=== PATIENT | female | born 1995 | race Caucasian/White ===

== ENCOUNTER 2017-08-16 17:12 | Emergency (ER) | payer OTHER ==
--- NOTE | 2017-08-16 17:50 | RAD ---
PA AND LATERAL OF THE CHEST: INDICATION: Chest pain. COMPARISON: Prior exam dated 11/22/2009. IMPRESSION: No acute cardiopulmonary abnormality. The examination is not appreciably changed from this compariso n study. POS: [facility]
[2017-08-16] MEDS ORDERED: Dicyclomine 20 MG TAB ONE (17:56)
[2017-08-16] MEDS ORDERED: Lidocaine Viscous Sol 2% 15 ml UD Cup ONE (17:57)
[2017-08-16] MEDS ORDERED: Mag-Al Plus 1200 MG/1200 MG/120 MG/30 ML UDCUP ONE (17:57)
[2017-08-16 18:26] LABS: #Basophils 0.1 thou/uL (0.0-0.2); #Eosinphils 0.1 thou/uL (0.0-0.7); #Lymphocytes 3.1 thou/uL (1.20-3.40); #Monocytes 0.6 thou/uL (0.11-0.59); #Neutrophils 5.2 thou/uL (1.40-6.50); %Basophils 0.6 % (0.0-1.0); %Eosinophils 1.3 % (0.0-10.0); %Lymphocytes 34.4 % (21.0-51.0); %Monocytes 6.5 % (0.0-10.0); %Neutrophils 57.3 % (42.0-75.0); Hemoglobin 11.8 g/dL (12.0-16.0); Mean Corpuscular HGB CONC 32.1 g/dL (32.0-36.0); Mean Corpuscular Hemoglobin 25.8 pg (27.0-31.0); Mean Corpuscular Volume 80.4 fl (81.0-99.0); Mean Platelet Volume 6.5 fL (7.4-10.4); Platelet Count 325 thou/uL (130-400); RBC Distribution Width 13.5 % (11.5-14.5); Red Blood Cell (RBC) Count 4.59 mill/uL (4.20-5.40); White Blood Cell (WBC) Count 9.1 thou/uL (4.8-10.8)
[2017-08-16 18:40] LABS: ALT (SGPT) 36 U/L (8-55); AST (SGOT) 25 U/L (5-34); Albumin 4.1 g/dL (3.5-5.0); Alkaline Phosphatase 136 U/L (40-150); Anion Gap 14 mmol/L (10-20); BUN (Urea Nitrogen) 9 mg/dL (7.0-18.7); Bilirubin, Total 0.4 mg/dL (0.2-1.2); Calc. Creatinine Clearance 0 mL/min (70-130); Calcium 9.6 mg/dL (7.8-10.44); Carbon Dioxide 25 mmol/L (22-29); Chloride 105 mmol/L (98-107); Estimated GFR-MDRD Greater than 90; Globulin 3.8 g/dL (2.4-3.5); Glucose 104 mg/dL (70-105); Lipase 11 U/L (8-78); Potassium 3.6 mmol/L (3.5-5.1); Protein, Total 7.9 g/dL (6.0-8.3); Sodium 140 mmol/L (136-145)
[2017-08-16 18:41] LABS: CKMB 0.8 ng/mL (0-6.6); Troponin I Less than 0.010 ng/mL (< 0.028)
[2017-08-16 18:53] LABS: Bilirubin Negative (Negative); Blood, Urine Trace (Negative); Clarity Hazy (Clear); Glucose, Urine (Dipstick) Negative (Negative); Leukocyte Small (Negative); Nitrite Positive (Negative); Protein, Urine (Dipstick) Negative (Neg-Trace); Specific Gravity, Urine 1.028 (1.002-1.036); Urobilinogen 0.2 mg/dL (0.2-1.0); pH, Urine 5.5 (5.0-9.0)
[2017-08-16 18:54] LABS: Bacteria/HPF 3+ HPF (None Seen); RBC/HPF 0-3 HPF (0-3)
[2017-08-16] MEDS ORDERED: Ketorolac Tromethamine 30 MG/ML VIAL ONE (19:48)
[2017-08-16] MEDS ORDERED: Cephalexin 500 MG CAP ONE (19:48)
[2017-08-16] MEDS ORDERED: Ondansetron HCl/PF 4 MG/2 ML Vial ONE (20:10)
--- NOTE | 2017-08-16 20:11 | ULT ---
RIGHT UPPER QUADRANT ULTRASOUND: 08/16/17 INDICATION: Epigastric abdominal pain and nausea and vomiting. COMPARISON: Prior exam dated 11/22/09. FINDINGS: There is increased echogenicity of the liver consistent with fatty infiltration. No focal hepatic les ion is evident. Visualized aspects of the pancreas are unremarkable. The gallbladder is contracted. There is a small amount of edema surrounding the gallbladder. The gall bladder wall is mildly thickened measuring 3.6 mm. The laboratory chemical assistant reports a positive Richardson's sign. Common bile duct measures 5.5 mm. The right kidney measures 11.9 cm in length. No focal renal lesion or hydronephrosis is evident. IMPRESSION: 1. Equivocal study for acute cholecystitis by sonogram. The gallbladder is contracted. There is suggestion of mild pericholecystic fluid and gallbladder wall thickening with a reported positive son ographic Richardson's sign. Recommend consideration for HIDA scan to evaluate for cystic duct obstruction . 2. Fatty infiltration of the liver. POS: [facility]
--- NOTE | 2017-09-27 15:48 | EKG ---
Test Reason : Blood Pressure : / mmHG Vent. Rate : 069 BPM Atrial Rate : 069 BPM P-R Int : 152 ms QRS Dur : 078 ms QT Int : 388 ms P-R-T Axes : 043 005 010 degrees QTc Int : 415 ms Normal sinus rhythm Moderate voltage criteria for LVH, may be normal variant Borderline ECG Confirmed by OSMIN MIN D.O. ([id number]), photographic editor KAUSHAL SEE ([id number]) on 09/27/2017 3:47:54 PM Referred By: DAYAMI Confirmed By:OSMIN MIN D.O.
== END 2017-08-16 21:20 | disposition home or self-care (01) ==
LOC: SCSER 17:12
DX: N39.0 Urinary tract infection, site not specified (principal); D64.9 Anemia, unspecified
CPT/HCPCS: 71020; 76705; 80053; 81003; 81015; 82553; 83690; 84484; 85025; 87077; 87086; 87186; 93005; 96374; 96375; J1885; J2405

== ENCOUNTER 2017-08-27 07:16 | Day surgery (SDC) | payer OTHER, SELFPAY ==
[2017-08-27 07:55] LABS: #Basophils 0.1 thou/uL (0.0-0.2); #Eosinphils 0.1 thou/uL (0.0-0.7); #Lymphocytes 2.6 thou/uL (1.20-3.40); #Monocytes 0.6 thou/uL (0.11-0.59); #Neutrophils 4.6 thou/uL (1.40-6.50); %Basophils 0.6 % (0.0-1.0); %Eosinophils 1.9 % (0.0-10.0); %Lymphocytes 32.9 % (21.0-51.0); %Monocytes 7.7 % (0.0-10.0); %Neutrophils 56.9 % (42.0-75.0); Hemoglobin 12.6 g/dL (12.0-16.0); Mean Corpuscular HGB CONC 34.4 g/dL (32.0-36.0); Mean Corpuscular Hemoglobin 27.9 pg (27.0-31.0); Mean Corpuscular Volume 81.1 fl (81.0-99.0); Mean Platelet Volume 7.2 fL (7.4-10.4); Platelet Count 324 thou/uL (130-400); RBC Distribution Width 13.9 % (11.5-14.5); Red Blood Cell (RBC) Count 4.53 mill/uL (4.20-5.40)
[2017-08-27 08:15] LABS: ALT (SGPT) 36 U/L (8-55); AST (SGOT) 26 U/L (5-34); Albumin 4.1 g/dL (3.5-5.0); Alkaline Phosphatase 129 U/L (40-150); Anion Gap 12 mmol/L (10-20); BUN (Urea Nitrogen) 9 mg/dL (7.0-18.7); Bilirubin, Total 0.4 mg/dL (0.2-1.2); Calc. Creatinine Clearance 0 mL/min (70-130); Calcium 9.8 mg/dL (7.8-10.44); Carbon Dioxide 24 mmol/L (22-29); Chloride 105 mmol/L (98-107); Estimated GFR-MDRD Greater than 90; Glucose 95 mg/dL (70-105); Lipase 9 U/L (8-78); Potassium 3.6 mmol/L (3.5-5.1); Protein, Total 8.1 g/dL (6.0-8.3); Sodium 137 mmol/L (136-145)
[2017-08-27] MEDS ORDERED: Ondansetron HCl/PF 4 MG/2 ML Vial ONE ×4 (08:55→14:42)
[2017-08-27] MEDS ORDERED: Ketorolac Tromethamine 30 MG/ML VIAL ONE ×2 (08:55→13:11)
[2017-08-27 10:48] LABS: Bilirubin Negative (Negative); Blood, Urine Negative (Negative); Glucose, Urine (Dipstick) Negative (Negative); Leukocyte Negative (Negative); Nitrite Negative (Negative); Protein, Urine (Dipstick) Negative (Neg-Trace); Urobilinogen 0.2 mg/dL (0.2-1.0)
[2017-08-27 10:49] LABS: Clarity Clear (Clear)
[2017-08-27] MEDS ORDERED: Morphine 2 MG/ML SYRINGE ONE (11:52)
[2017-08-27] MEDS ORDERED: Lidocaine 1% PF 5 ML VIAL ONE (13:11)
[2017-08-27] MEDS ORDERED: Propofol 200 MG/20 ML VIAL ONE (13:11)
[2017-08-27] MEDS ORDERED: Dexamethasone 20 MG/5 ML VIAL ONE (13:11)
[2017-08-27] MEDS ORDERED: Glycopyrrolate 0.2 MG/ML 5 ML SYRINGE ONE (13:11)
[2017-08-27] MEDS ORDERED: Midazolam HCl 2 mg/2 ml Vial ONE ×2 (14:16→15:32)
[2017-08-27] MEDS ORDERED: Bupivacaine/Epinephrine 0.25% 30 ML VIAL ONE (15:25)
[2017-08-27] MEDS ORDERED: cefOXitin 2 GM, Syringe 1 ML in Sterile Water 10 ML SLOW IVP SCH (15:30)
[2017-08-27] MEDS ORDERED: Fentanyl 100 MCG/2 ML VIAL ONE ×2 (15:32→17:13)
[2017-08-27] MEDS ORDERED: Promethazine HCl 25 MG/ML VIAL ONE (17:13)
--- NOTE | 2017-08-27 23:46 | OP ---
DATE OF SERVICE: 08/27/2017 PREOPERATIVE DIAGNOSIS: Acute cholecystitis. POSTOPERATIVE DIAGNOSIS: Acute cholecystitis. PROCEDURE: Laparoscopic cholecystectomy. SURGEON: Raheel Saleem M.D. ANESTHESIA: General. ESTIMATED BLOOD LOSS: Minimal. COMPLICATIONS: None. SPECIMEN: Gallbladder. FINDINGS: Cholecystitis. TECHNIQUE: The patient was taken to the operating room and laid supine on the operating room table. After general anesthetic was obtained, the abdomen was prepped and draped in a sterile fashion. A c urved incision was made below the umbilicus. Cautery was used to dissect down to the umbilical fasci a. Umbilical fascia was incised and held up using a Adelaida. The abdominal cavity was entered using a Cami clamp. Holding stitch of Vicryl was placed on each side of the fascia. Ball trocar was pl aced. High-flow pneumoperitoneum was obtained. An upper midline 5-mm port and two right upper quadr ant 5-mm ports were placed under direct camera visualization. The gallbladder was retracted from the gallbladder fossa. The peritoneum of the gallbladder was opened anteriorly and posteriorly. The cr itical view triangle was seen showing only the cystic duct and cystic artery branching from medial to lateral. There were no other branching structures. Two clips were placed proximally on the cystic duct and one laterally. It was cut using laparoscopic scissors. The cystic artery was taken in the same way. Electrocautery was then used to dissect the gallbladder out of the gallbladder fossa. The gallbladder was placed in an Endo catch bag and brought out through the Ball. There was no bleedi ng or bile in the liver bed. The cystic duct stump and cystic artery stump were intact without evide nce of extravasation or bleeding. All port sites were infiltrated using local anesthesia. All ports were removed under camera visualization. Pneumoperitoneum was let down. The Vicryl was used to bala se the fascial defect below the umbilicus. All incisions were irrigated and closed using 4-0 Monocry l and DermaBond. The patient was en route to recovery in stable condition. All instrument counts, n eedle counts and lap counts were correct.
== END 2017-08-27 19:20 | disposition home or self-care (01) ==
LOC: ERS 07:16 → SDC 11:30
PROVIDERS: ATTEND Surgery
PROC: 0FT44ZZ Resection of Gallbladder, Percutaneous Endoscopic Approach (ICD-10-PCS; principal; 2017-08-27)
DX: K81.1 Chronic cholecystitis (principal); D50.9 Iron deficiency anemia, unspecified; Z91.040 Latex allergy status
CPT/HCPCS: 36415; 80053; 81003; 83690; 84702; 85025; 88304; 96361; 96374; 96375; 96376; A4216; J0694; J1100; J1885; J2001; J2250; J2270; J2405; J2550; J2704; J3010